=== PATIENT | male | born 1955 ===

== ENCOUNTER → 2019-01-20 | Outpatient (CLI) | payer OTHER ==
--- NOTE | 2019-01-20 20:09 | RAD ---
Examination: VENOUS LOWER EXTREMITY LEFT History: Pain and swelling. Comparison/Correlation: None FINDINGS: Left lower extremity duplex venous ultrasound exam was performed. Grayscale, color Doppler, and spectral Doppler imaging was performed. Compression and augmentation was performed. The left common femoral vein, superficial femoral vein, popliteal vein, and greater saphenous vein are normal with no evidence of deep venous thrombus. Normal compressibility and augmentation is evident. Left calf veins are not well visualized. Flow is seen within left posterior tibial veins. Incidental note is made of a 10 cm longitudinal by 6.2 cm x 2.9 cm well-circumscribed extensively septated collection or mass. No flow evident on color Doppler imaging. This finding is present within the proximal to mid medial left calf region. IMPRESSION: Complex collection or mass involving the left proximal to mid medial calf. This may represent a hematoma or other complex collection. Interval follow-up to resolution is recommended. Further evaluation with MRI without and with contrast if able may be considered if clinically warranted to exclude possibility of neoplastic process. No evidence of deep venous thrombus involving the left lower extremity. Electronically signed by: Denis Smith MD (01/20/2019 8:06 PM) [facility]
== END | disposition home or self-care (01) ==
LOC: US 18:39
PROVIDERS: ATTEND Family Medicine
DX: M79.89 Other specified soft tissue disorders (principal)
CPT/HCPCS: 93971